=== PATIENT | female | born 2000 | race Caucasian/White ===

== ENCOUNTER 2022-05-09 15:14 | Emergency (ER) | payer BC ==
[2022-05-09] MEDS: LORazepam 2 MG/ML SDV IM ONE ×2 (15:31→16:10)
== END 2022-05-09 16:34 | disposition home or self-care (01) ==
LOC: SUPCPDRO 15:14 → VM.ED 15:14
DX: F41.0 Panic disorder [episodic paroxysmal anxiety] (principal); E66.9 Obesity, unspecified; Z68.1 Body mass index [BMI] 19.9 or less, adult
CPT/HCPCS: 96372; 99283; J2060